=== PATIENT | male | born 1945 | race Caucasian/White ===

== ENCOUNTER 2022-09-16 10:23 | Emergency (ER) | payer OTHER ==
[~2022-09-16] VITALS: Ht 182.9 cm; Wt 90.7 kg
[2022-09-16 10:48] VITALS: BP_SYST 206
--- NOTE | 2022-09-16 10:50 | NUR ---
Patient to ER bed 6 to gown for evaluation. Side rails up. Report given to SIMONA MASON.
--- NOTE | 2022-09-16 10:50 | NUR ---
pt presents byself to ed c/o lower back pain, pt fell early today around 1-2am according to pt he tripped on a pillow and hit his lower back on his bed post and just got back into bed. pt states his pain is dull when he sits at a pain level at 4 but when he walks his pain goes up to a 10. pt nad respirations are even and unlabored. pt is hooked up to vital machine will cont to monitor.
--- NOTE | 2022-09-16 10:51 | NUR ---
ER at bedside examining patient.
[2022-09-16] MEDS ORDERED: cloNIDine HCL 0.1 MG TABLET PO ONE (11:00)
--- NOTE | 2022-09-16 11:23 | NUR ---
ice pack applied to pt, safety percautions with one side rail, pt medicated according to order, pt resting comfortably.
[2022-09-16] MEDS ORDERED: TRAM50TA2 PO (12:07)
[2022-09-16 12:23] VITALS: BP_SYST 174
--- NOTE | 2022-09-16 12:23 | NUR ---
Patient given written and verbal discharge instructions and verbalizes understanding. ER MD discussed with patient the results and treatment provided. Patient in stable condition. ID arm band removed. Rx of tramadol given. Patient educated on pain management and to follow up with PMD. Pain Scale 2. Opportunity for questions provided and answered. Medication side effect fact sheet provided.
== END 2022-09-16 12:23 | disposition home or self-care (01) ==
LOC: EDBD 10:23 → SED 10:23
DX: S30.0XXA Contusion of lower back and pelvis, initial encounter (principal); I10 Essential (primary) hypertension; Z79.899 Other long term (current) drug therapy; W18.30XA Fall on same level, unspecified, initial encounter; Y93.89 Activity, other specified; Y92.89 Other specified places as the place of occurrence of the external cause; Y99.8 Other external cause status
CPT/HCPCS: 72100-TC; 99283

== ENCOUNTER 2022-09-30 19:29 | Inpatient (IN) | payer OTHER ==
[~2022-09-30] VITALS: Ht 182.9 cm; Wt 83.5 kg
[~2022-09-30 19:29] MED LIST: TRAM50TA2 PO
[2022-09-30 19:36] VITALS: BP_SYST 91
[2022-09-30] MEDS ORDERED: ONDANSETRON HCL 4 MG/2 ML VIAL IVP ONE (19:45)
[2022-09-30] MEDS ORDERED: PANTOPRAZOLE SODIUM 40 MG/VIAL (PROTONIX) IVP ONE (19:45)
[2022-09-30] MEDS ORDERED: METOCLOPRAMIDE HCL 10 MG/2 ML VIAL ONE (20:24)
[2022-09-30 20:30] LABS: BASOPHILS % (AUTO) 0.2 % (0.0-2.0); EOSINOPHILS % (AUTO) 0.1 % (0.0-4.0); HEMATOCRIT 30.5 % (36-54); HEMOGLOBIN 10.6 g/dL (14.0-18.0); LYMPHOCYTES % (AUTO) 11.6 % (20.5-51.5); MEAN CORPUSCULAR HEMOGLOBIN 30 pg (27-31); MEAN CORPUSCULAR HGB CONC 35 % (32-36); MEAN CORPUSCULAR VOLUME 86 fL (79.0-98.0); MONOCYTES # (AUTO) 0.7 K/uL (0.0-1.0); MONOCYTES % (AUTO) 3.9 % (1.7-9.3); NEUTROPHILS # (AUTO) 14.7 K/uL (1.8-7.7); NEUTROPHILS % (AUTO) 84.2 % (40.0-70.0); PLATELET COUNT (AUTO) 277 K/uL (130-430); RED BLOOD CELL COUNT(AUTO) 3.53 MIL/uL (4.2-6.2); WHITE BLOOD COUNT (AUTO) 17.4 K/uL (4.8-10.8)
[2022-09-30] MEDS ORDERED: METOCLOPRAMIDE HCL 10 MG/2 ML VIAL IVP ONE (20:30)
[2022-09-30] MEDS ORDERED: PANTOPRAZOLE SODIUM 40 MG in NS 50 ML IV SCH (20:30)
[2022-09-30] MEDS ORDERED: NACL 0.9% 2,000 ML IV ONE (20:30)
[2022-09-30] MEDS ORDERED: PANTOPRAZOLE SODIUM 40 MG/VIAL (PROTONIX) ONE (20:37)
[2022-09-30 20:42] LABS: ANION GAP 14 (5-15); CALCIUM 8.5 mg/dL (8.4-11.0); CHLORIDE 103 mmol/L (98-107); CREATININE 1.98 mg/dL (0.55-1.30); GLUCOSE 176 mg/dL (70-99); INR 1.2 (0.80-1.20); PROTHROMBIN TIME 11.6 SECS (9.5-12.5); UREA NITROGEN, BLOOD 90 mg/dL (8-21)
[2022-09-30] MEDS ORDERED: DIPHENHYDRAMINE INJ 50 MG/ML VIAL IVP ONE (20:45)
[2022-09-30 20:48] LABS: ALANINE AMINOTRANSFERASE 17 U/L (12-78); ALBUMIN 2.6 g/dL (3.4-4.8); ASPARTATE AMINOTRANSFERASE 14 U/L (10-37); TOTAL BILIRUBIN 0.6 mg/dL (0.0-1.0)
[2022-10-01] VITALS (18 sets, daily range): BP systolic 89–149
[2022-10-01] MEDS: D5/0.45 NS 1,000 ML IV SCH ×3 (06:00→16:43)
[2022-10-01] MEDS: PANTOPRAZOLE SODIUM 40 MG in NS 50 ML IV SCH ×4 (06:46→21:40)
[2022-10-01 07:09] LABS: BASOPHILS % (AUTO) 0.2 % (0.0-2.0); EOSINOPHILS % (AUTO) 0.2 % (0.0-4.0); HEMATOCRIT 36.8 % (36-54); HEMOGLOBIN 12.9 g/dL (14.0-18.0); LYMPHOCYTES # (AUTO) 2.7 K/uL (1.0-5.5); MEAN CORPUSCULAR HEMOGLOBIN 31 pg (27-31); MEAN CORPUSCULAR HGB CONC 35 % (32-36); MEAN CORPUSCULAR VOLUME 88 fL (79.0-98.0); MONOCYTES # (AUTO) 0.9 K/uL (0.0-1.0); NEUTROPHILS # (AUTO) 10.6 K/uL (1.8-7.7); NEUTROPHILS % (AUTO) 74.6 % (40.0-70.0); PLATELET COUNT (AUTO) 228 K/uL (130-430); RED BLOOD CELL COUNT(AUTO) 4.17 MIL/uL (4.2-6.2); RED CELL DISTRIBUTION WIDTH 13.2 % (9.0-15.0); WHITE BLOOD COUNT (AUTO) 14.2 K/uL (4.8-10.8)
[2022-10-01 07:28] LABS: ANION GAP 11 (5-15); CALCIUM 8.6 mg/dL (8.4-11.0); CHLORIDE 104 mmol/L (98-107); CREATININE 1.76 mg/dL (0.55-1.30); GLUCOSE 98 mg/dL (70-99); UREA NITROGEN, BLOOD 82 mg/dL (8-21)
[2022-10-01] MEDS ORDERED: MIDAZOLAM HCL 5 MG/5 ML VIAL ONE (07:37)
[2022-10-01] MEDS ORDERED: fentaNYL CITRATE/PF 100 MCG/2 ML AMP ONE (07:37)
[2022-10-01] MEDS ORDERED: ONDANSETRON HCL 4 MG/2 ML VIAL IVP PRN (09:45)
[2022-10-01] MEDS ORDERED: LORazepam 2 MG/ML VIAL IVP PRN (09:45)
[2022-10-01 10:53] LABS: HEMATOCRIT 32.7 % (36-54); HEMOGLOBIN 11.4 g/dL (14.0-18.0)
[2022-10-01] MEDS: FLUCONAZOLE 200 mg/ NS 100 ML IV SCH (14:52)
[2022-10-01 20:58] LABS: HEMATOCRIT 33.7 % (36-54); HEMOGLOBIN 11.6 g/dL (14.0-18.0)
[2022-10-01 21:48] LABS: BILIRUBIN,URINE NEGATIVE (NEGATIVE); BLOOD, URINE NEGATIVE (NEGATIVE); CLARITY/URINE CLEAR (CLEAR); COLOR,URINE YELLOW (YELLOW); GLUCOSE,URINE NEGATIVE (NEGATIVE); KETONES,URINE NEGATIVE (NEGATIVE); LEUKOCYTE ESTERASE ,URINE NEGATIVE (NEGATIVE); NITRITE, URINE NEGATIVE (NEGATIVE); PH,URINE 6.5 (5.0-8.0); PROTEIN URINE NEGATIVE (NEGATIVE); UROBILINOGEN,URINE 0.2 (0.2-1.0)
[2022-10-02 00:33] VITALS: BP_SYST 135
[2022-10-02 00:37] LABS: BASOPHILS # (AUTO) 0.1 K/uL (0.0-0.2); BASOPHILS % (AUTO) 0.5 % (0.0-2.0); EOSINOPHILS # (AUTO) 0.2 K/uL (0.0-0.4); EOSINOPHILS % (AUTO) 1.7 % (0.0-4.0); HEMATOCRIT 33.8 % (36-54); HEMOGLOBIN 11.6 g/dL (14.0-18.0); LYMPHOCYTES # (AUTO) 2.5 K/uL (1.0-5.5); LYMPHOCYTES % (AUTO) 21.5 % (20.5-51.5); MEAN CORPUSCULAR HEMOGLOBIN 30 pg (27-31); MEAN CORPUSCULAR HGB CONC 34 % (32-36); MEAN CORPUSCULAR VOLUME 88 fL (79.0-98.0); MONOCYTES # (AUTO) 0.6 K/uL (0.0-1.0); MONOCYTES % (AUTO) 5.1 % (1.7-9.3); NEUTROPHILS # (AUTO) 8.4 K/uL (1.8-7.7); NEUTROPHILS % (AUTO) 71.2 % (40.0-70.0); PLATELET COUNT (AUTO) 225 K/uL (130-430); RED BLOOD CELL COUNT(AUTO) 3.85 MIL/uL (4.2-6.2); RED CELL DISTRIBUTION WIDTH 13.2 % (9.0-15.0); WHITE BLOOD COUNT (AUTO) 11.8 K/uL (4.8-10.8)
[2022-10-02] MEDS: PANTOPRAZOLE SODIUM 40 MG in NS 50 ML IV SCH ×2 (02:20→06:50)
[2022-10-02] MEDS: D5/0.45 NS 1,000 ML IV SCH ×3 (03:29→23:15)
[2022-10-02 03:48] LABS: HEMATOCRIT 32.4 % (36-54); HEMOGLOBIN 11.3 g/dL (14.0-18.0)
[2022-10-02 04:04] LABS: ANION GAP 6 (5-15); CALCIUM 8.4 mg/dL (8.4-11.0); CHLORIDE 105 mmol/L (98-107); CREATININE 1.58 mg/dL (0.55-1.30); GLUCOSE 114 mg/dL (70-99); PHOSPHORUS 2.8 mg/dL (2.7-4.5); UREA NITROGEN, BLOOD 52 mg/dL (8-21)
[2022-10-02 07:20] VITALS: BP_SYST 165
[2022-10-02] MEDS ORDERED: HYG25 PO (07:42)
[2022-10-02] MEDS ORDERED: MIRT-92 PO (07:42)
[2022-10-02] MEDS ORDERED: OMEP20CA15 PO (07:42)
[2022-10-02] MEDS ORDERED: LOSA50TA3 PO (07:42)
[2022-10-02] MEDS ORDERED: ROSU40TA PO (07:42)
[2022-10-02 08:00] VITALS: BP_SYST 165
[2022-10-02 08:01] LABS: HEMATOCRIT 34.3 % (36-54); HEMOGLOBIN 11.8 g/dL (14.0-18.0)
[2022-10-02] MEDS: PANTOPRAZOLE SODIUM 40 MG/VIAL (PROTONIX) IVP SCH ×2 (08:22→21:08)
[2022-10-02] MEDS ORDERED: cloNIDine HCL 0.2 MG TABLET PO PRN (11:00)
[2022-10-02 11:25] VITALS: BP_SYST 143
[2022-10-02] MEDS ORDERED: POTASSIUM CHLORIDE 20 MEQ TAB.PRT.SR PO ONE (13:00)
[2022-10-02] MEDS ORDERED: LOSARTAN POTASSIUM 50 MG TABLET (COZAAR) PO ONE (13:30)
[2022-10-02] MEDS ORDERED: CHLORTHALIDONE 25 MG TABLET (HYGROTON) PO ONE (13:45)
[2022-10-02] MEDS: FLUCONAZOLE 200 mg/ NS 100 ML IV SCH (13:57)
[2022-10-02 15:22] VITALS: BP_SYST 149
[2022-10-02 20:25] VITALS: BP_SYST 164
[2022-10-02] MEDS ORDERED: ROSUVASTATIN CALCIUM 5 MG/TAB (CRESTOR) PO SCH (21:00)
[2022-10-02] MEDS: ATORVASTATIN 20 MG TABLET PO SCH (21:07)
[2022-10-02] MEDS: MIRTAZAPINE 15 MG TABLET PO SCH (21:07)
[2022-10-03 00:05] VITALS: BP_SYST 111
[2022-10-03 07:07] LABS: HSV 2 IgG, TYPE SPECIFIC <0.91 index (0.00-0.90)
[2022-10-03 07:19] LABS: ALANINE AMINOTRANSFERASE 21 U/L (12-78); ALBUMIN 2.6 g/dL (3.4-4.8); ANION GAP 9 (5-15); ASPARTATE AMINOTRANSFERASE 18 U/L (10-37); CALCIUM 8.3 mg/dL (8.4-11.0); CHLORIDE 107 mmol/L (98-107); CREATININE 1.64 mg/dL (0.55-1.30); GLUCOSE 121 mg/dL (70-99); PHOSPHORUS 3.3 mg/dL (2.7-4.5); TOTAL BILIRUBIN 0.5 mg/dL (0.0-1.0); UREA NITROGEN, BLOOD 30 mg/dL (8-21)
[2022-10-03 07:34] LABS: BASOPHILS % (AUTO) 0.5 % (0.0-2.0); EOSINOPHILS # (AUTO) 0.2 K/uL (0.0-0.4); EOSINOPHILS % (AUTO) 2.4 % (0.0-4.0); HEMATOCRIT 29.7 % (36-54); HEMOGLOBIN 10.8 g/dL (14.0-18.0); LYMPHOCYTES % (AUTO) 20.9 % (20.5-51.5); MEAN CORPUSCULAR HEMOGLOBIN 31 pg (27-31); MEAN CORPUSCULAR HGB CONC 36 % (32-36); MEAN CORPUSCULAR VOLUME 86 fL (79.0-98.0); MONOCYTES # (AUTO) 0.6 K/uL (0.0-1.0); MONOCYTES % (AUTO) 6.7 % (1.7-9.3); NEUTROPHILS # (AUTO) 6.7 K/uL (1.8-7.7); NEUTROPHILS % (AUTO) 69.5 % (40.0-70.0); PLATELET COUNT (AUTO) 213 K/uL (130-430); RED BLOOD CELL COUNT(AUTO) 3.48 MIL/uL (4.2-6.2); RED CELL DISTRIBUTION WIDTH 13.3 % (9.0-15.0); WHITE BLOOD COUNT (AUTO) 9.6 K/uL (4.8-10.8)
[2022-10-03 07:38] LABS: ERYTHROCYTE SEDIMENTATION RATE 8 MM/HR (0-15)
[2022-10-03 08:00] VITALS: BP_SYST 109
[2022-10-03] MEDS: LOSARTAN POTASSIUM 50 MG TABLET (COZAAR) PO SCH (08:03)
[2022-10-03] MEDS: CHLORTHALIDONE 25 MG TABLET (HYGROTON) PO SCH (08:04)
[2022-10-03 08:08] LABS: C-REACTIVE PROTEIN QUANT < 0.2 mg/dL (0-0.5)
[2022-10-03] MEDS: D5/0.45 NS 1,000 ML IV SCH (08:48)
[2022-10-03] MEDS: PANTOPRAZOLE SODIUM 40 MG/VIAL (PROTONIX) IVP SCH ×2 (08:51→21:15)
[2022-10-03 12:45] VITALS: BP_SYST 110
[2022-10-03 14:05] LABS: HSV 1 IgG, TYPE SPECIFIC 9.47 index (0.00-0.90)
[2022-10-03] MEDS: FLUCONAZOLE 200 mg/ NS 100 ML IV SCH (15:08)
[2022-10-03 16:44] VITALS: BP_SYST 111
[2022-10-03 20:25] VITALS: BP_SYST 150
[2022-10-03] MEDS: ATORVASTATIN 20 MG TABLET PO SCH (21:15)
[2022-10-03] MEDS: MIRTAZAPINE 15 MG TABLET PO SCH (21:15)
[2022-10-04] MEDS: CHLORTHALIDONE 25 MG TABLET (HYGROTON) PO SCH (08:49)
[2022-10-04] MEDS: PANTOPRAZOLE SODIUM 40 MG/VIAL (PROTONIX) IVP SCH (08:50)
[2022-10-04] MEDS: LOSARTAN POTASSIUM 50 MG TABLET (COZAAR) PO SCH (08:50)
[2022-10-04 08:55] LABS: BASOPHILS % (AUTO) 0.3 % (0.0-2.0); EOSINOPHILS # (AUTO) 0.3 K/uL (0.0-0.4); EOSINOPHILS % (AUTO) 2.6 % (0.0-4.0); HEMATOCRIT 35.7 % (36-54); HEMOGLOBIN 12.4 g/dL (14.0-18.0); LYMPHOCYTES # (AUTO) 1.9 K/uL (1.0-5.5); LYMPHOCYTES % (AUTO) 19.8 % (20.5-51.5); MEAN CORPUSCULAR HEMOGLOBIN 31 pg (27-31); MEAN CORPUSCULAR HGB CONC 35 % (32-36); MEAN CORPUSCULAR VOLUME 87 fL (79.0-98.0); MONOCYTES # (AUTO) 0.5 K/uL (0.0-1.0); MONOCYTES % (AUTO) 5.4 % (1.7-9.3); NEUTROPHILS % (AUTO) 71.9 % (40.0-70.0); PLATELET COUNT (AUTO) 246 K/uL (130-430); RED BLOOD CELL COUNT(AUTO) 4.09 MIL/uL (4.2-6.2); RED CELL DISTRIBUTION WIDTH 13.1 % (9.0-15.0); WHITE BLOOD COUNT (AUTO) 9.8 K/uL (4.8-10.8)
[2022-10-04 09:38] LABS: ERYTHROCYTE SEDIMENTATION RATE 26 MM/HR (0-15)
[2022-10-04 09:43] LABS: ANION GAP 8 (5-15); CALCIUM 9.2 mg/dL (8.4-11.0); CHLORIDE 104 mmol/L (98-107); CREATININE 1.54 mg/dL (0.55-1.30); GLUCOSE 132 mg/dL (70-99); PHOSPHORUS 3.6 mg/dL (2.7-4.5); UREA NITROGEN, BLOOD 26 mg/dL (8-21)
[2022-10-04 09:48] LABS: C-REACTIVE PROTEIN QUANT < 0.2 mg/dL (0-0.5)
[2022-10-04 11:15] VITALS: BP_SYST 164
[2022-10-04] MEDS ORDERED: PRO40 PO (12:03)
[2022-10-04 13:37] VITALS: BP_SYST 164
== END 2022-10-04 13:55 | disposition home or self-care (01) | DRG 871 ==
LOC: SED 19:29 → SIC 21:14 → SMU 10-01 12:18 → STU 10-01 12:21
PROVIDERS: ADMIT Preventive Medicine Preventive Medicine/Occupational Environmental Medicine; ATTEND Preventive Medicine Preventive Medicine/Occupational Environmental Medicine
PROC: 30233N1 Transfusion of Nonautologous Red Blood Cells into Peripheral Vein, Percutaneous Approach (ICD-10-PCS; 2022-10-01)
PROC: 0DB78ZX Excision of Stomach, Pylorus, Via Natural or Artificial Opening Endoscopic, Diagnostic (ICD-10-PCS; principal; 2022-10-01 09:00)
DX: A41.9 Sepsis, unspecified organism (principal); E43 Unspecified severe protein-calorie malnutrition; K22.11 Ulcer of esophagus with bleeding; J96.00 Acute respiratory failure, unspecified whether with hypoxia or hypercapnia; K25.4 Chronic or unspecified gastric ulcer with hemorrhage; N17.9 Acute kidney failure, unspecified; D62 Acute posthemorrhagic anemia; K44.9 Diaphragmatic hernia without obstruction or gangrene; E88.09 Other disorders of plasma-protein metabolism, not elsewhere classified; R73.9 Hyperglycemia, unspecified; N28.1 Cyst of kidney, acquired; R53.81 Other malaise; Z20.822 Contact with and (suspected) exposure to COVID-19; D72.829 Elevated white blood cell count, unspecified; E83.52 Hypercalcemia; I10 Essential (primary) hypertension; E78.5 Hyperlipidemia, unspecified; Z68.25 Body mass index [BMI] 25.0-25.9, adult; K20.90 Esophagitis, unspecified without bleeding
CPT/HCPCS: 36415; 43239; 71045; 76770; 80048; 80053; 81003; 82570; 83735; 84100; 84302; 84484; 85018; 85025; 85610-TC; 85651-TC; 86140; 86695; 86696; 86886; 86900; 86901; 86920; 87040; 87081; 87086; 87497; 88305; 88312; 88313; 93005; 96365; 96375; 99291; 99292; C9113; G0378; J0696; J1200; J1450; J2250; J2405; J2765; J3010; J7060; P9021

== ENCOUNTER 2023-01-12 19:26 | Emergency (ER) | payer OTHER ==
[~2023-01-12] VITALS: Ht 182.9 cm; Wt 88.5 kg
[~2023-01-12 19:26] MED LIST changes: +HYG25 PO; +LOSA50TA3 PO; +MIRT-92 PO; +PRO40 PO; +ROSU40TA PO; -TRAM50TA2 PO
[2023-01-12 19:40] VITALS: BP_SYST 159
[2023-01-12] MEDS ORDERED: ACETAMINOPHEN 500 MG TABLET PO ONE (23:15)
[2023-01-13] MEDS ORDERED: LIDOCAINE 1% 10 MG/ML, 20 ML MDV SUBCUT ONE (02:45)
[2023-01-13] MEDS ORDERED: BACITRACIN 1 GM OINT TP ONE (03:10)
[2023-01-13] MEDS ORDERED: NAPR-688 PO (03:11)
[2023-01-13 03:21] VITALS: BP_SYST 120
== END 2023-01-13 03:21 | disposition home or self-care (01) ==
LOC: SED 19:26
DX: S81.011A Laceration without foreign body, right knee, initial encounter (principal); S80.211A Abrasion, right knee, initial encounter; I10 Essential (primary) hypertension; Z79.899 Other long term (current) drug therapy; W08.XXXA Fall from other furniture, initial encounter; Y93.89 Activity, other specified; Y92.89 Other specified places as the place of occurrence of the external cause; Y99.8 Other external cause status
CPT/HCPCS: 99284; 73700; 73564; 76376; 12002; J2001